=== PATIENT | male | born 1975 | race Caucasian/White ===

== ENCOUNTER 2020-07-02 10:45 | Emergency (ER) | payer OTHER ==
[~2020-07-02 10:45] MED LIST: ATIVAN0.5 MG PO; K-DUR TAB 20 M20 MEQ PO; LOPRESSOR 25 MG25 MG PO; LOPRESSOR50 MG PO; ZOFRAN4 MG PO
[2020-07-02 12:01] LABS: HEMOGLOBIN 16.1 gm/dl (14.0-17.5); RED BLOOD COUNT 5.33 M/UL (4.20-5.50); WHITE BLOOD COUNT 5.5 K/UL (4.5-11.0)
[2020-07-02 12:24] LABS: BUN/CREATININE RATIO 16 (0-10)
== END 2020-07-02 13:31 | disposition home or self-care (01) ==
LOC: ER1 10:45
PROVIDERS: Physician Assistant
DX: R51.9 Headache, unspecified (principal); R42 Dizziness and giddiness; R23.2 Flushing; I48.91 Unspecified atrial fibrillation; I10 Essential (primary) hypertension; Z79.01 Long term (current) use of anticoagulants; Z88.0 Allergy status to penicillin; Z88.2 Allergy status to sulfonamides; Z88.8 Allergy status to other drugs, medicaments and biological substances
CPT/HCPCS: 70450; 80053; 82550; 82553; 83874; 84484; 85025; 93005; 99284

== ENCOUNTER → 2020-10-22 | Outpatient (CLI) | payer OTHER | LOC: RT 09:03 | DX: I48.91 Unspecified atrial fibrillation (principal) | CPT/HCPCS: 93005 ==

== ENCOUNTER → 2021-02-04 | Outpatient (CLI) | payer OTHER | LOC: RT 15:56 | DX: I48.0 Paroxysmal atrial fibrillation (principal) | CPT/HCPCS: 93005 ==